=== PATIENT | female | born 1940 | race Asian ===

== ENCOUNTER → 2016-07-04 | Outpatient (CLI) | payer BC | END | disposition home or self-care (01) | LOC: C.PAPS 14:06 | PROVIDERS: ATTEND Obstetrics & Gynecology | DX: Z01.419 Encounter for gynecological examination (general) (routine) without abnormal findings (principal) ==

== ENCOUNTER → 2017-03-19 | Outpatient (CLI) | payer BC ==
--- NOTE | 2017-03-19 15:45 | MAMMOGRAPHY REPORT ---
BILATERAL DIGITAL SCREENING MAMMOGRAM WITH CAD: 03/19/2017 CLINICAL HISTORY: Routine screening. Patient has no complaints. TECHNIQUE: Bilateral CC and MLO views were obtained. Current study was also evaluated with a Compute r Aided Detection (CAD) system. COMPARISON: Comparison is made to exams dated: 02/28/2016 mammogram, 02/25/2015 mammogram, 02/24/2014 m ammogram, 02/23/2013 mammogram, 02/21/2012 mammogram, and 02/19/2011 mammogram - [facility] enter. BREAST COMPOSITION: The tissue of both breasts is heterogeneously dense, which may obscure small mas ses. FINDINGS: The parenchymal pattern is unchanged. No developing mass, architectural distortion or clus ter of suspicious microcalcifications is seen in either breast. IMPRESSION: ACR BI-RADS CATEGORY 2: BENIGN There is no mammographic evidence of malignancy. A 1 year screening mammogram is recommended. The pa tient will receive written notification of the results. Approximately 10% of breast cancers are not detected with mammography. A negative mammographic report should not delay biopsy if a clinically suggestive mass is present. Anika Whitlock M.D. ay/:03/19/2017 15:09:59 Box Bender: Estelle ESPINOZA(Lexie)(M), [facility] letter sent: Normal 1/2 BI-RADS Code: ACR BI-RADS Category 2: Benign
== END | disposition home or self-care (01) ==
LOC: C.MAMM 10:50
PROVIDERS: ATTEND Internal Medicine
DX: Z12.31 Encounter for screening mammogram for malignant neoplasm of breast (principal)

== ENCOUNTER → 2017-05-20 | Outpatient (CLI) | payer BC ==
[2017-05-20 12:21] LABS: BASO % 0.2 %; BASO ABS # 0.01 K/uL (0-0.2); COMPLETE YES; EOS % 3.9 %; HEMATOCRIT 39.8 % (37-47); IG% 0.2 %; LYMPH % 29.4 %; LYMPH ABS # 1.49 K/uL (1.2-3.4); MEAN CORPUSCULAR HEMOGLOBIN 29.3 pg (25-34); MEAN CORPUSCULAR HGB CONC 32.9 g/dl (32-36); MEAN PLATELET VOLUME 9.6 fL (7.4-10.4); MONO % 9.1 %; NEUT % 57.2 %; PLATELET COUNT 260 K/uL (130-400); RED BLOOD COUNT 4.47 M/uL (4.2-5.4); WHITE BLOOD COUNT 5.07 K/uL (4.8-10.8)
[2017-05-20 12:41] LABS: ALT/SGPT 18 U/L (12-78); BLOOD UREA NITROGEN 13 mg/dl (7-18); BUN/CREATININE RATIO 21.5 (10-20); CALCIUM 9.1 mg/dl (8.5-10.1); CARBON DIOXIDE 28 mmol/L (21-32); CHLORIDE 107 mmol/L (98-107); CHOLESTEROL 227 mg/dl (0-200); CREATININE 0.61 mg/dl (0.60-1.20); GLUCOSE 92 mg/dl (70-99); SODIUM 140 mmol/L (136-145); TRIGLYCERIDES 69 mg/dl (0-150); VERY LOW DENSITY LIPOPROT CALC 14 mg/dl
[2017-05-20 12:52] LABS: ALKALINE PHOSPHATASE 100 U/L (45-117); AST/SGOT 18 U/L (15-37); CHOLESTEROL/HDL RATIO 3.1; HDL CHOLESTEROL 73 mg/dl; LDL CHOLESTEROL CALCULATED 140 mg/dl
== END | disposition home or self-care (01) ==
LOC: C.LAB1850 10:06
PROVIDERS: ATTEND Internal Medicine
DX: Z00.00 Encounter for general adult medical examination without abnormal findings (principal); Z13.1 Encounter for screening for diabetes mellitus; Z13.0 Encounter for screening for diseases of the blood and blood-forming organs and certain disorders involving the immune mechanism; E03.9 Hypothyroidism, unspecified

== ENCOUNTER → 2017-09-30 | Outpatient (CLI) | payer OTHER | END | disposition home or self-care (01) | LOC: C.MAMM 08:47 | PROVIDERS: ATTEND Internal Medicine | DX: M85.851 Other specified disorders of bone density and structure, right thigh (principal); M85.852 Other specified disorders of bone density and structure, left thigh ==

== ENCOUNTER → 2017-10-07 | Outpatient (CLI) | payer OTHER | END | disposition home or self-care (01) | LOC: C.LAB1850 09:22 | PROVIDERS: ATTEND Internal Medicine | DX: M85.80 Other specified disorders of bone density and structure, unspecified site (principal); E78.5 Hyperlipidemia, unspecified; E03.9 Hypothyroidism, unspecified ==

== ENCOUNTER → 2017-10-15 | Outpatient (CLI) | payer OTHER ==
--- NOTE | 2017-10-15 08:47 | DIAGNOSTIC IMAGING REPORT ---
ABDOMEN LIMITED (US) HISTORY: 77 years-old Female M25.551 Right hip painu/s right lower quandrant and pelivisULTR acute right lower quadrant abdominal pain COMPARISON: None available TECHNIQUE: Multiple real-time sonographic images of the abdominal right lower quadrant were obtained assessing grayscale appearance FINDINGS: Within the abdominal right lower quadrant within the area of concern, no focal mass, focal fluid collection or other tissue heterogeneity identified. No hyperemia identified. IMPRESSION: No abnormality identified within the abdominal right lower quadrant. The above report was generated using voice recognition software. It may contain grammatical, syntax or spelling errors. Electronically signed by: Joey Hawley M.D. 10/15/2017 8:45 AM Dictated Date/Time: 10/15/2017 8:44 AM
== END | disposition home or self-care (01) ==
LOC: C.ULTR 08:06
PROVIDERS: ATTEND Internal Medicine
DX: M25.551 Pain in right hip (principal)

== ENCOUNTER → 2017-10-15 | Outpatient (CLI) | payer OTHER ==
--- NOTE | 2017-10-15 09:15 | DIAGNOSTIC IMAGING REPORT ---
R HIP UNILATERAL 2 VIEWS HISTORY: 77 years-old Female M25.551 Right hip [id number] acute right hip pain without known injury COMPARISON: None available TECHNIQUE: 2 views of the right hip FINDINGS: Mild osteoarthritis of the right femoral acetabular joint. Bones appear mildly demineralized. No acute fracture or dislocation. The imaged right hemipelvis appears intact. There is no radiopaque foreign body. IMPRESSION: No acute fracture or dislocation. The above report was generated using voice recognition software. It may contain grammatical, syntax or spelling errors. Electronically signed by: Joey Hawley M.D. 10/15/2017 9:13 AM Dictated Date/Time: 10/15/2017 9:12 AM
== END | disposition home or self-care (01) ==
LOC: C.RAD1850 08:51
PROVIDERS: ATTEND Internal Medicine
DX: M25.551 Pain in right hip (principal)

== ENCOUNTER 2022-12-01 19:39 | Observation (INO) ==
[2022-12-01] MEDS ORDERED: SODIUM CHLORIDE 0.9% 500 ML IV SCH (20:00)
[2022-12-01] MEDS ORDERED: SODIUM CHLORIDE 0.9% 1000ML 1,000 ML IV SCH (20:00)
--- NOTE | 2022-12-01 20:23 | Emergency Department Note ---
Impression & Plan COVID-19, Nausea & vomiting, Acute dehydration ED Provider Note INFORMANT: Patient and ED PROVIDER(S): Ángel Aquino MD CHIEF COMPLAINT: COVID and vomiting PLAN: Disposition: Admitted Condition: Good Outpatient prescription management: none Referral: None MEDICAL DECISION MAKING: Patient presented because of vomiting. She was recently diagnosed with COVID. She also noted dizziness. Patient was hydrated. She was given IV Zofran. Patient was also treated with meclizine and diazepam as she had significant positional vertigo-like symptoms. Patient did not have any vertical or rotatory nystagmus on examination. She had a nonfocal neurologic examination. Head CT was unremarkable. Chest x-ray was negative. Laboratory testing did not reveal any significant findings other than her COVID test confirming her positivity. Given the patient's symptomatic nature further management in the hospital will be necessary. Patient and were in agreement. Consultation was made with Dr. Michele Madrid of the [facility] service. Patient was evaluated in the ER for further management. Discussed with marketing sales manager After review of the information above and other included data, I feel the patient requires admission. Triage Nursing notes reviewed and agree them. Vital Signs: reviewed and remarkable for no significant abnormalities Prior /Outside records reviewed: none Differential diagnosis: COVID-19, medication side effect, gastroenteritis, food borne illness, infections, appendicitis, diverticulitis, inflammatory bowel disease, GI bleed, biliary pathology, as well as others were entertained. Diagnostics, as interpreted by me: ECG: Twelve-lead ECG reveals normal sinus rhythm at [address] elevation or depression. No TWI. No PVCs or PACs. Cardiac Monitoring: Cardiac monitoring ordered by me: The patient was placed on continuous cardiac monitoring and observed. It revealed a normal sinus rhythm at 83 beats per minute without ectopy or evidence of dysrhythmia. Medical decision rules: none Imaging studies: Chest x-ray. Findings: A chest x-ray was performed and revealed no pneumothorax, effusion, infiltrate, pulmonary edema, free air under the diaphragm, or wide mediastinum. Impression: No acute disease. Head CT: A noncontrast CT scan of the head was performed and was negative for tumor, fracture, intracranial hemorrhage, or other acute pathology. HPI: The patient is a 82year old female who presents to the Emergency Room with complaints of vomiting. This started yesterday and is worse today. The patient also notes the following associated symptoms, headache, mild cough, nausea, weakness, and one episode of diarrhea. Patient had a COVID contact recently. She tested +3 days ago. She was prescribed Paxlovid. The patient has been given Zofran by EMS for relieving factors. Current pain is rated as 0/10. Pt d enies LOC, fevers, chills, diaphoresis, visual changes, neck pain, chest pain, breathing difficulties,abdominal pain, back pain, melena, hematochezia, urinary symptoms, numbness, lymphadenopathy, rash, or other complaints. PAST MEDICAL HISTORY: See Below, GERD, hyperlipidemia PAST SURGICAL HISTORY: See Below, SOCIAL HISTORY: See Below, HOME MEDICATIONS: See Below ALLERGIES: See Below VITALS: See Below PHYSICAL EXAMINATION: GENERAL: Awake, alert, mildly ill-appearing, in no distress HENT: Normocephalic, atraumatic. Oropharynx unremarkable. EYES: Normal conjunctiva. Sclera non-icteric. NECK: Inspection normal. Non-tender. Supple. No nuchal rigidity. FROM. No masses. RESPIRATORY: Clear to auscultation. No wheezes. No rales. Normal respiratory effort. CARDIAC: Normal rate. Normal rhythm. No murmurs. No rubs. Extremities warm and well perfused. Pulses equal. No JVD. GI: Soft, non-distended. No tenderness to palpation. No rebound or guarding. No masses. RECTAL: Deferred. MUSCULOSKELETAL: Atraumatic. Chest examination reveals no tenderness. The back is symmetrical on inspection without obvious abnormality. There is no CVA tenderness to palpation. No joint edema. LOWER EXTREMITIES: Calves are equal size bilaterally and non-tender. No edema. No discoloration. NEURO: Normal sensorium. No sensory or motor deficits noted. SKIN: No rash or jaundice noted. Past Med/Surg History Medical History Basal cell carcinoma removed from cheek Dyspareunia Endometrial polyp Esophageal reflux Hyperlipidemia no meds Kidney stones hx of > passed on own Osteoarthritis Otitis media Pelvic pain Subclinical hypothyroidism no meds Venous insufficiency Surgical History H/O shoulder surgery left History of colonoscopy History of colposcopy History of left cataract surgery History of tooth extraction Family History Denies family history of Ovarian cancer Coronary heart disease Breast cancer Colorectal cancer Social History Smoking Status: Never smoker Second Hand Exposure: No; Do You Dip or Chew Tobacco: No; Hx Alcohol Use: No Hx Substance Use: No Preferred Language: Georgian Communication Ability: Effective Visual Impairment: No Limitations Hearing Ability: Normal Towboat Operator Required: No Beliefs That Will Affect Care: None marital status: Current Living Situation: Spouse current occupational status: retired Feels Safe at Home: Yes Dental Care, Regularly: Yes Seatbelt Use: always Sunscreen Use: Yes Assistive Devices: Glasses Allergies Allergies Allergy/AdvReac Type Severity Reaction Status Date / Time cortisone AdvReac Intermediate Rash Verified 11/27/22 06:31 erythromycin base AdvReac Intermediate Rash Verified 11/27/22 06:31 Penicillins AdvReac Intermediate Rash Verified 11/27/22 06:31 prednisone AdvReac Intermediate Rash Verified 11/27/22 06:31 Tetracyclines AdvReac Unknown Unknown Verified 11/27/22 06:31 Home Meds Home Medications Medication Instructions Recorded Confirmed ascorbate calcium (vitamin C) 500 500 mg PO DAILY 11/01/22 12/01/22 mg tablet calcium carbonate 200 mg calcium 200 mg PO BID PRN Cramps 11/01/22 12/01/22 (500 mg) chewable tablet (Tums) famotidine 20 mg tablet 20 mg PO DAILY PRN Heartburn 11/01/22 12/01/22 gatifloxacin 0.5 % eye drops See Rx Instructions .Route .COMPLEX 12/01/22 12/01/22 ketorolac 0.5 % eye drops See Rx Instructions .Route .COMPLEX 12/01/22 12/01/22 prednisolone acetate 1 % eye See Rx Instructions .Route .COMPLEX 12/01/22 12/01/22 drops,suspension Previous Rx's Medication Instructions Recorded lorazepam 0.5 mg tablet 0.5 mg PO DAILY PRN anxiety #30 11/21/22 tabs nirmatrelvir 300 mg (150 mg See Rx Instructions PO .COMPLEX 11/30/22 x2)-ritonavir 100 mg tablet,dose #30 tabs pack (Paxlovid) Results & Data (ED) Vital Signs Vital Signs - 24 hr 12/01/22 19:55 12/01/22 20:20 12/01/22 20:35 Temperature 36.4 C L Temperature Source Oral Pulse Rate 85 82 83 Pulse Rate [Finger] Pulse Rate from SpO2 Sensor Pulse Rhythm Regular Respiratory Rate 18 18 Blood Pressure 130/72 Blood Pressure [Right Arm] Blood Pressure Mean 91 Blood Pressure Mean [Right Arm] Blood Pressure Position Semi-fowlers Pulse Oximetry 98 98 Oxygen Delivery Method Room Air Room Air Sepsis Recent Fever Within 48 Hours No Sepsis New/Unexplained Change in Mental Status No Sepsis Action Taken by Nursing No Action Required 12/01/22 21:30 12/01/22 21:30 12/01/22 22:00 Temperature Temperature Source Pulse Rate 79 Pulse Rate [Finger] Pulse Rate from SpO2 Sensor 79 Pulse Rhythm Respiratory Rate 18 Blood Pressure 145/81 H 137/78 Blood Pressure [Right Arm] Blood Pressure Mean 102 91 Blood Pressure Mean [Right Arm] Blood Pressure Position Pulse Oximetry 93 Oxygen Delivery Method Room Air Sepsis Recent Fever Within 48 Hours Sepsis New/Unexplained Change in Mental Status Sepsis Action Taken by Nursing 12/01/22 22:00 12/02/22 00:00 12/02/22 00:35 Temperature Temperature Source Pulse Rate 84 81 Pulse Rate [Finger] 85 Pulse Rate from SpO2 Sensor 84 Pulse Rhythm Respiratory Rate 21 20 Blood Pressure Blood Pressure [Right Arm] 130/88 Blood Pressure Mean Blood Pressure Mean [Right Arm] 102 Blood Pressure Position Pulse Oximetry 93 94 Oxygen Delivery Method Room Air Room Air Sepsis Recent Fever Within 48 Hours Sepsis New/Unexplained Change in Mental Status Sepsis Action Taken by Nursing 12/02/22 02:00 Temperature Temperature Source Pulse Rate Pulse Rate [Finger] 83 Pulse Rate from SpO2 Sensor Pulse Rhythm Respiratory Rate 18 Blood Pressure Blood Pressure [Right Arm] 136/71 Blood Pressure Mean Blood Pressure Mean [Right Arm] 92 Blood Pressure Position Pulse Oximetry 96 Oxygen Delivery Method Room Air Sepsis Recent Fever Within 48 Hours Sepsis New/Unexplained Change in Mental Status Sepsis Action Taken by Nursing Laboratory Data 12/01/22 20:12 12/01/22 20:12 Lab Results 12/01/22 12/01/22 12/01/22 Range/Units 20:12 20:12 20:12 WBC 6.57 (4.8-10.8) K/ul RBC 4.16 L (4.20-5.40) M/uL Hgb 12.5 (12.0-16.0) g/dl Hct 37.2 (37.0-47.0) % MCV 89.4 (80.0-100.0) fL MCH 30.0 (25.0-34.0) pg MCHC 33.6 (32.0-36.0) g/dL RDW Std Deviation 42.7 (36.4-46.3) fL RDW Coeff of Silke 13.1 (11.5-14.5) % Plt Count 178 (130-400) K/uL MPV 10.3 (9.4-12.4) fL Immature Gran % (Auto) 0.3 % Neut % (Auto) 85.1 % Lymph % (Auto) 8.2 % Jerauld % (Auto) 5.6 % Eos % (Auto) 0.3 % Baso % (Auto) 0.5 % Neut # (Auto) 5.59 (1.40-6.50) K/uL Lymph # (Auto) 0.54 L (1.2-3.4) K/uL Jerauld # (Auto) 0.37 (0.11-0.59) K/uL Eos # (Auto) 0.02 (0-0.50) K/uL Baso # (Auto) 0.03 (0-0.2) K/uL Immature Gran # (Auto) 0.02 (0.01-0.20) K/uL Platelet Estimate Decreased L (Normal) Sodium 134 L (136-145) mmol/L Potassium 3.8 (3.5-5.1) mmol/L Chloride 102 (98-107) mmol/L Carbon Dioxide 24 (21-32) mmol/L Anion Gap 8 (3-11) BUN 12 (6-23) mg/dl Creatinine 0.60 (0.6-1.2) mg/dl Est Cr Clr Drug Dosing 68.8 ml/min Est GFR ( Amer) 99.1 ml/min Est GFR (Non-Af Amer) 85.5 ml/min BUN/Creatinine Ratio 20.0 (10-20) Glucose 164 H (70-99(Fasting)) mg/dl Lactate (0.4-2.0) mmol/L Calcium 9.0 (8.6-10.3) mg/dl Magnesium 1.9 (1.7-2.4) mg/dl Total Bilirubin 0.3 (0.2-1.0) mg/dl AST 22 (13-39) U/L ALT 13 (7-52) U/L Alkaline Phosphatase 90 (34-104) U/L Troponin I High Sens 9.2 (0-14) pg/ml Total Protein 7.3 (6.0-8.3) gm/dl Albumin 4.3 (3.4-5.0) gm/dl Globulin 3.0 (2.5-4.0) gm/dl Albumin/Globulin Ratio 1.4 (0.9-2) Procalcitonin (0-0.5) ng/ml TSH 4.370 (0.300-4.500) uIu/ml SARS-CoV-2 (PCR) (Negative) Influenza Type A (PCR) (Neg) Influenza Type B (PCR) (Neg) RSV (RT-PCR) (Neg) 12/01/22 12/01/22 12/01/22 Range/Units 20:12 20:12 20:12 WBC (4.8-10.8) K/ul RBC (4.20-5.40) M/uL Hgb (12.0-16.0) g/dl Hct (37.0-47.0) % MCV (80.0-100.0) fL MCH (25.0-34.0) pg MCHC (32.0-36.0) g/dL RDW Std Deviation (36.4-46.3) fL RDW Coeff of Silke (11.5-14.5) % Plt Count (130-400) K/uL MPV (9.4-12.4) fL Immature Gran % (Auto) % Neut % (Auto) % Lymph % (Auto) % Jerauld % (Auto) % Eos % (Auto) % Baso % (Auto) % Neut # (Auto) (1.40-6.50) K/uL Lymph # (Auto) (1.2-3.4) K/uL Jerauld # (Auto) (0.11-0.59) K/uL Eos # (Auto) (0-0.50) K/uL Baso # (Auto) (0-0.2) K/uL Immature Gran # (Auto) (0.01-0.20) K/uL Platelet Estimate (Normal) Sodium (136-145) mmol/L Potassium (3.5-5.1) mmol/L Chloride (98-107) mmol/L Carbon Dioxide (21-32) mmol/L Anion Gap (3-11) BUN (6-23) mg/dl Creatinine (0.6-1.2) mg/dl Est Cr Clr Drug Dosing ml/min Est GFR ( Amer) ml/min Est GFR (Non-Af Amer) ml/min BUN/Creatinine Ratio (10-20) Glucose (70-99(Fasting)) mg/dl Lactate 1.5 (0.4-2.0) mmol/L Calcium (8.6-10.3) mg/dl Magnesium (1.7-2.4) mg/dl Total Bilirubin (0.2-1.0) mg/dl AST (13-39) U/L ALT (7-52) U/L Alkaline Phosphatase (34-104) U/L Troponin I High Sens (0-14) pg/ml Total Protein (6.0-8.3) gm/dl Albumin (3.4-5.0) gm/dl Globulin (2.5-4.0) gm/dl Albumin/Globulin Ratio (0.9-2) Procalcitonin < 0.05 (0-0.5) ng/ml TSH (0.300-4.500) uIu/ml SARS-CoV-2 (PCR) POSITIVE A* (Negative) Influenza Type A (PCR) Negative (Neg) Influenza Type B (PCR) Negative (Neg) RSV (RT-PCR) Negative (Neg) Administered Medications Sodium Chloride (Nss 1000ml) 1,000 mls @ 125 mls/hr IV .Q8H BUNNY Stop: 12/02/22 03:59 Last Admin: 12/01/22 20:22 Dose: 125 mls/hr Documented By: Discontinued Medications Diazepam (Diazepam 5 Mg/Ml Inj 10ml Vial) 2.5 mg IV NOW STA Stop: 12/01/22 21:44 Last Admin: 12/01/22 22:16 Dose: 2.5 mg Documented By: Sodium Chloride (Nss) 500 mls @ 999 mls/hr IV .Q31M BUNNY Stop: 12/01/22 20:30 Last Infusion: 12/01/22 22:21 Dose: 0 mls/hr Documented By: Admin: 12/01/22 20:22 Dose: 999 mls/hr Documented By: Meclizine HCl (Meclizine Hcl 25 Mg Tab) 25 mg PO NOW STA Stop: 12/01/22 21:44 Last Admin: 12/01/22 22:14 Dose: 25 mg Documented By: Ondansetron HCl (Ondansetron Inj 2 Mg/Ml 2 Ml Vial) 4 mg IV NOW STA Stop: 12/01/22 20:27 Last Admin: 12/01/22 20:30 Dose: 4 mg Documented By: Imaging Data Radiologist's Impression: Head CT 12/01/22 21:43 Exam(s): CT HEAD Without Contrast EXAM: CT Head Without Intravenous Contrast CLINICAL HISTORY: Reason for exam: dizziness, vomiting. TECHNIQUE: Axial computed tomography images of the head/brain without intravenous contrast. Automated exposure control was utilized for the study. A dose lowering technique was utilized adhering to the principles of ALARA. COMPARISON: No relevant prior studies available. FINDINGS: Brain: Unremarkable. No hemorrhage. No significant white matter disease. No edema. Ventricles: Unremarkable. No ventriculomegaly. Bones/joints: Unremarkable. No acute fracture. Soft tissues: Unremarkable. Sinuses: Unremarkable as visualized. No acute sinusitis. Mastoid air cells: Unremarkable as visualized. No mastoid effusion. IMPRESSION: Normal head/brain CT. Electronically signed by: Faustino Bar MD 12/01/22 23:14 PM Discharge Plan Visit Data Chief Complaint: Vomiting Stated Complaint: COVID+/VOMITING/DIARRHEA ED Provider: Ángel Aquino Discharge Problem: COVID-19, Nausea & vomiting, Acute dehydration Forms Stand Alone Forms: [facility] [employer] Prescriptions Prescriptions: No Action lorazepam 0.5 mg tablet 0.5 mg PO DAILY PRN (Reason: anxiety) Qty: 30 0RF Paxlovid 300 mg (150 mg x 2)-100 mg tablets,dose pack See Rx Instructions PO .COMPLEX Qty: 30 0RF Rx Instructions: take TWO 150 mg tablets of nirmatrelvir with ONE 100 mg tablet of ritonavir twice daily for 5 days PO famotidine 20 mg tablet 20 mg PO DAILY PRN (Reason: Heartburn) calcium carbonate [Tums] 200 mg calcium (500 mg) tablet,chewable 200 mg PO BID PRN (Reason: Cramps) ascorbate calcium (vitamin C) 500 mg tablet 500 mg PO DAILY ketorolac 0.5 % drops See Rx Instructions .ROUTE .COMPLEX Rx Instructions: drp prednisolone acetate 1 % drops,suspension See Rx Instructions .ROUTE .COMPLEX Rx Instructions: drp gatifloxacin 0.5 % drops See Rx Instructions .ROUTE .COMPLEX Rx Instructions: drp Referrals Referrals: Johnathon Butler MD [Primary Care Provider] -
[2022-12-01] MEDS ORDERED: ONDANSETRON INJ 2 MG/ML 2 ML VIAL IV STA (20:26)
[2022-12-01 20:55] LABS: Hematocrit (blood only) 37.2 % (37.0-47.0); Hemoglobin 12.5 g/dl (12.0-16.0); White Blood Count 6.57 K/ul (4.8-10.8)
[2022-12-01 21:02] LABS: Albumin Globulin Ratio 1.4 (0.9-2); Albumin Level 4.3 gm/dl (3.4-5.0); Bilirubin,Total 0.3 mg/dl (0.2-1.0); Creatinine Clr Calc Pharmacy 68.8 ml/min; Est GFR (African American) 99.1 ml/min; Est GFR (Non-African American) 85.5 ml/min; Magnesium 1.9 mg/dl (1.7-2.4); Potassium 3.8 mmol/L (3.5-5.1); Total Protein 7.3 gm/dl (6.0-8.3)
[2022-12-01 21:07] LABS: Troponin I High Sensitivity 9.2 pg/ml (0-14)
[2022-12-01 21:23] LABS: Influenza A virus by PCR Negative (Neg); Influenza B virus by PCR Negative (Neg); RSV by PCR Negative (Neg)
[2022-12-01] MEDS ORDERED: MECLIZINE HCL 25 MG TAB PO STA (21:43)
[2022-12-01 21:49] LABS: SARS CoV2 RNA(COVID-19) Ceph POSITIVE (Negative)
[2022-12-01 22:18] LABS: Mean Corpuscular Hgb Conc 33.6 g/dL (32.0-36.0); Mean Corpuscular Volume 89.4 fL (80.0-100.0); Mean Platelet Volume 10.3 fL (9.4-12.4); Platelet Count 178 K/uL (130-400); RDW Coefficient of Variation 13.1 % (11.5-14.5); RDW Standard Deviation 42.7 fL (36.4-46.3); Red Blood Count 4.16 M/uL (4.20-5.40)
[2022-12-01 22:20] LABS: Basophils # (auto) 0.03 K/uL (0-0.2); Basophils % (auto) 0.5 %; Eosinophils # (auto) 0.02 K/uL (0-0.50); Eosinophils % (auto) 0.3 %; Immature Granulocytes # (auto) 0.02 K/uL (0.01-0.20); Immature Granulocytes % (auto) 0.3 %; Lymphocytes # (auto) 0.54 K/uL (1.2-3.4); Lymphocytes % (auto) 8.2 %; Monocytes # (auto) 0.37 K/uL (0.11-0.59); Monocytes % (auto) 5.6 %; Neutrophils # (auto) 5.59 K/uL (1.40-6.50); Neutrophils % (auto) 85.1 %; Platelet Estimate Decreased (Normal)
--- NOTE | 2022-12-01 23:15 | CT Scan Report ---
Exam(s): CT HEAD Without Contrast EXAM: CT Head Without Intravenous Contrast CLINICAL HISTORY: Reason for exam: dizziness, vomiting. TECHNIQUE: Axial computed tomography images of the head/brain without intravenous contrast. Automated exposure control was utilized for the study. A dose lowering technique was utilized adhering to the principles of ALARA. COMPARISON: No relevant prior studies available. FINDINGS: Brain: Unremarkable. No hemorrhage. No significant white matter disease. No edema. Ventricles: Unremarkable. No ventriculomegaly. Bones/joints: Unremarkable. No acute fracture. Soft tissues: Unremarkable. Sinuses: Unremarkable as visualized. No acute sinusitis. Mastoid air cells: Unremarkable as visualized. No mastoid effusion. IMPRESSION: Normal head/brain CT. Electronically signed by: Faustino Bar MD 12/01/22 23:14 PM
--- NOTE | 2022-12-02 01:38 | History & Physical Report ---
Date of Service December 02, 2022 Assessment & Plan (1) COVID-19: (2) Nausea & vomiting: (3) Acute dehydration: (4) GERD (gastroesophageal reflux disease): (5) S/P cataract extraction and insertion of intraocular lens: Plan COVID-19 infection- Would hold Paxlovid at this point, as it may aggravate current symptoms as noted above Viral infection likely as cause of nausea and vomiting, vertigo, dizziness and generalized weakness Treat symptomatically Would not place on dexamethasone at this time Placed on IV fluids NSS + KCl 20 mill equivalents at 80 mils per hour Acetaminophen 650 mg NPO every 6 hours as needed for mild pain or fever Zofran 4 mg IV every 6 hours as needed Lorazepam 0.5 mg p.o. every 8 hours as needed. Patient did receive Valium 2.5 mg IV from the ED Status post cataract extractions bilaterally- Continue eyedrops as noted in med rec History of Present Illness Chief Complaint: The patient presents to the emergency department with intractable vertigo, vomiting, dizziness and dry mouth. Primary Care Provider: Johnathon Butler MD The patient is a 82-year-old female who underwent first cataract extraction about 1 month ago, then follow-up I was done on Saturday, 4 days ago. She continues to take eyedrops post eye surgery. 3 days ago, her was diagnosed with COVID 19, and then 2 days ago she was diagnosed with COVID-19. Yesterday she developed the above symptoms of intractable vertigo, vomiting, dizziness, and dry mouth associated with decreased oral intake. She had been prescribed Paxlovid, of which she took 1 dose so far, and this was taken after the noted symptoms began. She and her report that she typically is a healthy person, and does not take any medications routinely prior to using eyedrops for eye surgery. Allergies Allergy/AdvReac Type Severity Reaction Status Date / Time cortisone AdvReac Intermediate Rash Verified 11/27/22 06:31 erythromycin base AdvReac Intermediate Rash Verified 11/27/22 06:31 Penicillins AdvReac Intermediate Rash Verified 11/27/22 06:31 prednisone AdvReac Intermediate Rash Verified 11/27/22 06:31 Tetracyclines AdvReac Unknown Unknown Verified 11/27/22 06:31 Home Medications Medication Instructions Recorded Confirmed Type ascorbate calcium (vitamin C) 500 500 mg PO DAILY 11/01/22 12/01/22 History mg tablet calcium carbonate 200 mg calcium 200 mg PO BID PRN Cramps 11/01/22 12/01/22 Hi story (500 mg) chewable tablet (Tums) famotidine 20 mg tablet 20 mg PO DAILY PRN Heartburn 11/01/22 12/01/22 History lorazepam 0.5 mg tablet 0.5 mg PO DAILY PRN anxiety #30 11/21/22 12/01/22 Rx tabs nirmatrelvir 300 mg (150 mg See Rx Instructions PO .COMPLEX 11/30/22 12/01/22 Rx x2)-ritonavir 100 mg tablet,dose #30 tabs pack (Paxlovid) gatifloxacin 0.5 % eye drops See Rx Instructions .Route .COMPLEX 12/01/22 12/01/22 History ketorolac 0.5 % eye drops See Rx Instructions .Route .COMPLEX 12/01/22 12/01/22 History prednisolone acetate 1 % eye See Rx Instructions .Route .COMPLEX 12/01/22 12/01/22 History drops,suspension Past Med/Surg History Medical History (Updated 12/01/22 @ 20:22 by Ángel Aquino MD) Basal cell carcinoma removed from cheek Dyspareunia Endometrial polyp Esophageal reflux Hyperlipidemia no meds Kidney stones hx of > passed on own Osteoarthritis Otitis media Pelvic pain Subclinical hypothyroidism no meds Venous insufficiency Surgical History (Updated 12/02/22 @ 05:15 by Michele Madrid MD) H/O shoulder surgery left History of colonoscopy History of colposcopy History of left cataract surgery History of tooth extraction S/P cataract extraction and insertion of intraocular lens Family History Denies family history of Ovarian cancer Coronary heart disease Breast cancer Colorectal cancer Social History Smoking Status: Never smoker Second Hand Exposure: No; Do You Dip or Chew Tobacco: No; Tobacco Cessation Education Requested by Patient: No Hx Alcohol Use: No Hx Substance Use: No Preferred Language: Bengali Communication Ability: Kitt[place] Visual Impairment: No Limitations Hearing Ability: Normal Information Systems Operator Required: No Beliefs That Will Affect Care: None marital status: Current Living Situation: Spouse current occupational status: retired Other Information That Helps Us Care for You: No Feels Safe at Home: Yes Safety Concerns: Feels Safe At This Time Dental Care, Regularly: Yes Seatbelt Use: always Sunscreen Use: Yes Assistive Devices: None Review of Systems Review of Systems: The patient denies chest pain, palpitations, shortness of breath, dyspnea on exertion, cough, lower extremity swelling, fevers, chills, sweats, blood in urine or stool, dysuria, urinary frequency or urgency, memory loss, loss of consciousness, rash, abnormal bruising or bleeding, imbalance, focal weakness, numbness or tingling in arms or legs, generalized arthralgias or myalgias, back or neck pain, or night sweats. The review of systems is otherwise negative other than for that already noted above, and at least 10 systems have been reviewed. Physical Exam Physical Exam: The patient is awake, alert and oriented 3, well developed and well nourished, normocephalic and atraumatic, lying in bed, wearing dark sunglasses, and in no acute distress. HEENT--PERRL, EOMI, mucous membranes and oropharynx moderately dry. Neck--supple. No JVD. No bruits. Thyroid normal, trachea midline, no adenopathy. Heart--normal S1 and S2. No murmurs, rubs or gallops. Lungs--clear bilaterally, no respiratory distress, no accessory muscle use. Abdomen--normal bowel sounds and soft. Nontender. Nondistended, no hernias or masses, no organomegaly. Extremities--no cyanosis or clubbing. No edema. Dermatologic--normal skin turgor, normal color, no abnormal lymph nodes, no rash. Neurologic--cranial nerves II through XII grossly intact. Rheumatologic--normal range of motion. Psychiatric--normal affect. Results & Data Results & Data Vital Signs (Past 12 Hours) Vital Signs Temp Pulse Pulse Resp BP BP Pulse Ox 12/02/22 00:00 85 20 130/88 94 12/01/22 22:00 84 21 93 12/01/22 22:00 137/78 12/01/22 21:30 79 18 93 12/01/22 21:30 145/81 H 12/01/22 20:35 83 12/01/22 20:20 82 18 98 12/01/22 19:55 36.4 C L 85 18 130/72 98 O2 Del Method 12/02/22 00:00 Room Air 12/01/22 22:00 Room Air 12/01/22 22:00 12/01/22 21:30 Room Air 12/01/22 21:30 12/01/22 20:35 12/01/22 20:20 Room Air 12/01/22 19:55 Room Air Laboratory Results Laboratory Results WBC 6.57 K/ul (4.8-10.8) 12/01/22 20:12 RBC 4.16 M/uL (4.20-5.40) L 12/01/22 20:12 Hgb 12.5 g/dl (12.0-16.0) 12/01/22 20:12 Hct 37.2 % (37.0-47.0) 12/01/22 20:12 MCV 89.4 fL (80.0-100.0) 12/01/22 20:12 MCH 30.0 pg (25.0-34.0) 12/01/22 20:12 MCHC 33.6 g/dL (32.0-36.0) 12/01/22 20:12 RDW Std Deviation 42.7 fL (36.4-46.3) 12/01/22 20:12 RDW Coeff of Silke 13.1 % (11.5-14.5) 12/01/22 20:12 Plt Count 178 K/uL (130-400) 12/01/22 20:12 MPV 10.3 fL (9.4-12.4) 12/01/22 20:12 Immature Gran % (Auto) 0.3 % 12/01/22 20:12 Neut % (Auto) 85.1 % 12/01/22 20:12 Lymph % (Auto) 8.2 % 12/01/22 20:12 [place] % (Auto) 5.6 % 12/01/22 20:12 Eos % (Auto) 0.3 % 12/01/22 20:12 Baso % (Auto) 0.5 % 12/01/22 20:12 Neut # (Auto) 5.59 K/uL (1.40-6.50) 12/01/22 20:12 Lymph # (Auto) 0.54 K/uL (1.2-3.4) L 12/01/22 20:12 [place] # (Auto) 0.37 K/uL (0.11-0.59) 12/01/22 20:12 Eos # (Auto) 0.02 K/uL (0-0.50) 12/01/22 20:12 Baso # (Auto) 0.03 K/uL (0-0.2) 12/01/22 20:12 Immature Gran # (Auto) 0.02 K/uL (0.01-0.20) 12/01/22 20:12 Platelet Estimate Decreased (Normal) L 12/01/22 20:12 Sodium 134 mmol/L (136-145) L 12/01/22 20:12 Potassium 3.8 mmol/L (3.5-5.1) 12/01/22 20:12 Chloride 102 mmol/L (98-107) 12/01/22 20:12 Carbon Dioxide 24 mmol/L (21-32) 12/01/22 20:12 Anion Gap 8 (3-11) 12/01/22 20:12 BUN 12 mg/dl (6-23) 12/01/22 20:12 Creatinine 0.60 mg/dl (0.6-1.2) 12/01/22 20:12 Est Cr Clr Drug Dosing 68.8 ml/min 12/01/22 20:12 Est GFR ( Amer) 99.1 ml/min 12/01/22 20:12 Est GFR (Non-Af Amer) 85.5 ml/min 12/01/22 20:12 BUN/Creatinine Ratio 20.0 (10-20) 12/01/22 20:12 Glucose 164 mg/dl (70-99(Fasting)) H 12/01/22 20:12 Lactate 1.5 mmol/L (0.4-2.0) 12/01/22 20:12 Calcium 9.0 mg/dl (8.6-10.3) 12/01/22 20:12 Magnesium 1.9 mg/dl (1.7-2.4) 12/01/22 20:12 Total Bilirubin 0.3 mg/dl (0.2-1.0) 12/01/22 20:12 AST 22 U/L (13-39) 12/01/22 20:12 ALT 13 U/L (7-52) 12/01/22 20:12 Alkaline Phosphatase 90 U/L (34-104) 12/01/22 20:12 Troponin I High Sens 9.2 pg/ml (0-14) 12/01/22 20:12 Total Protein 7.3 gm/dl (6.0-8.3) 12/01/22 20:12 Albumin 4.3 gm/dl (3.4-5.0) 12/01/22 20:12 Globulin 3.0 gm/dl (2.5-4.0) 12/01/22 20:12 Albumin/Globulin Ratio 1.4 (0.9-2) 12/01/22 20:12 Procalcitonin < 0.05 ng/ml (0-0.5) 12/01/22 20:12 TSH 4.370 uIu/ml (0.300-4.500) 12/01/22 20:12 Urine Color Yellow 12/02/22 04:30 Urine Appearance Clear (Clear) 12/02/22 04:30 Urine pH 7.0 (4.5-7.5) 12/02/22 04:30 Ur Specific [place] 1.007 (1.000-1.030) 12/02/22 04:30 Urine Protein Negative (Negative) 12/02/22 04:30 Urine Glucose (UA) Trace (Negative) H 12/02/22 04:30 Urine Ketones Negative (Negative) 12/02/22 04:30 Urine Blood Negative (Negative) 12/02/22 04:30 Urine Nitrite Negative (Negative) 12/02/22 04:30 Urine Bilirubin Negative (Negative) 12/02/22 04:30 Urine Urobilinogen Negative (Negative) 12/02/22 04:30 Ur Leukocyte Esterase Negative (Negative) 12/02/22 04:30 SARS-CoV-2 (PCR) POSITIVE (Negative) A* 12/01/22 20:12 Influenza Type A (PCR) Negative (Neg) 12/01/22 20:12 Influenza Type B (PCR) Negative (Neg) 12/01/22 20:12 RSV (RT-PCR) Negative (Neg) 12/01/22 20:[address] 12/01/22 21:43 Exam(s): CT HEAD Without Contrast EXAM: CT Head Without Intravenous Contrast CLINICAL HISTORY: Reason for exam: dizziness, vomiting. TECHNIQUE: Axial computed tomography images of the head/brain without intravenous contrast. Automated exposure control was utilized for the study. A dose lowering technique was utilized adhering to the principles of ALARA. COMPARISON: No relevant prior studies available. FINDINGS: Brain: Unremarkable. No hemorrhage. No significant white matter disease. No edema. Ventricles: Unremarkable. No ventriculomegaly. Bones/joints: Unremarkable. No acute fracture. Soft tissues: Unremarkable. Sinuses: Unremarkable as visualized. No acute sinusitis. Mastoid air cells: Unremarkable as visualized. No mastoid effusion. IMPRESSION: Normal head/brain CT. Electronically signed by: Faustino Bar MD 12/01/22 23:14 PM Code Status & VTE Plan Code Status Full code VTE Prophylaxis Plan VTE Prophylaxis will be ordered: Yes PG Care Time/CCT Total # of Minutes Spent Total Time Spent with Patient: Total time spent is greater than 50% in coordination of care (as documented) at patient's floor/unit and/or counseling patient: Coding Level of Care Code 68623 INT INP/OBS CARE 3/75MIN Diagnoses COVID-19 U07.1 Nausea & vomiting R11.2 Acute dehydration E86.0 GERD (gastroesophageal reflux disease) K21.9 S/P cataract extraction and insertion of intraocular lens Z98.49; Z96.1
[2022-12-02] MEDS ORDERED: CALCIUM CARBONATE 500 MG CHEWABLE TAB PO PRN (03:02)
[2022-12-02] MEDS ORDERED: ACETAMINOPHEN 325 MG TAB PO PRN (03:02)
[2022-12-02] MEDS ORDERED: ONDANSETRON INJ 2 MG/ML 2 ML VIAL IV PRN (03:02)
[2022-12-02] MEDS ORDERED: LORazepam 0.5 MG TAB PO PRN (03:02)
[2022-12-02] MEDS: NSS + 20MEQ KCL 20 MEQ/1,000 ML BAG IV SCH ×2 (03:51→16:29)
[2022-12-02 04:36] LABS: Appearance Urine Clear (Clear); Bilirubin Urine Negative (Negative); Blood Urine Negative (Negative); Color Urine Yellow; Glucose Urine UA Trace (Negative); Ketones Urine Negative (Negative); Leukocyte Esterase Urine Negative (Negative); Nitrite Urine Negative (Negative); Protein Urine Negative (Negative); Specific Gravity Urine 1.007 (1.000-1.030); Urobilinogen Urine Negative (Negative)
--- NOTE | 2022-12-02 07:49 | XRay Report ---
XR chest 1V portable CLINICAL HISTORY: weakness COMPARISON STUDY: Chest CT November 01, 2006. FINDINGS: Lung volumes are mildly diminished. There is no pneumothorax or effusion. Minimal left basi lar opacity favors atelectasis. Cardiac size is normal. There is no evidence for pulmonary edema. IMPRESSION: 1. No acute cardiopulmonary findings. 2. Minimal left basilar opacity which favors atelectasis. ACT 112: Negative or not required by law. Electronically signed by: Humberto Leahy M.D. 12/02/2022 7:48 AM
[2022-12-02 08:14] LABS: Basophils # (auto) 0.01 K/uL (0-0.2); Basophils % (auto) 0.2 %; Hematocrit (blood only) 37.8 % (37.0-47.0); Immature Granulocytes # (auto) 0.02 K/uL (0.01-0.20); Immature Granulocytes % (auto) 0.4 %; Mean Corpuscular Hemoglobin 30.1 pg (25.0-34.0); Mean Corpuscular Hgb Conc 34.4 g/dL (32.0-36.0); Mean Corpuscular Volume 87.5 fL (80.0-100.0); Mean Platelet Volume 9.5 fL (9.4-12.4); Monocytes # (auto) 0.68 K/uL (0.11-0.59); Neutrophils # (auto) 3.43 K/uL (1.40-6.50); Neutrophils % (auto) 65.4 %; Platelet Count 214 K/uL (130-400); RDW Standard Deviation 41.5 fL (36.4-46.3); Red Blood Count 4.32 M/uL (4.20-5.40); White Blood Count 5.24 K/ul (4.8-10.8)
[2022-12-02 08:28] LABS: Albumin Level 3.8 gm/dl (3.4-5.0); BUN Creatinine Ratio 14.5 (10-20); Calcium 8.7 mg/dl (8.6-10.3); Phosphorus 2.7 mg/dl (2.5-4.9); Potassium 3.7 mmol/L (3.5-5.1)
[2022-12-02] MEDS ORDERED: REMDESIVIR 200 MG in SODIUM CHLORIDE 0.9% 210 ML IV STA (09:34)
[2022-12-02] MEDS: MECLIZINE 12.5 MG TAB PO SCH ×3 (10:20→22:08)
[2022-12-02] MEDS: ASCORBIC ACID 500 MG TAB PO SCH (10:20)
[2022-12-02] MEDS: CIPROFLOXACIN HCL 0.3% OP SOLN 2.5 ML BTL OPR SCH ×3 (10:22→14:30)
[2022-12-02] MEDS ORDERED: KETOROLAC 0.5% OP SOLN 3 ML BTL OPR SCH (12:00)
[2022-12-02] MEDS: KETOROLAC 0.5% OP SOLN 5 ML BTL OPR SCH ×3 (12:16→20:20)
[2022-12-02] MEDS: prednisoLONE acetate 1% OP SUSP 5 ML BTL OPR SCH ×3 (12:16→20:19)
[2022-12-02] MEDS: GATIFLOXACIN 0.5% OP SOLN 2.5 ML BTL OPR SCH ×2 (16:22→22:11)
[2022-12-02] MEDS ORDERED: LORazepam 1 MG TAB PO STA (18:55)
--- NOTE | 2022-12-02 19:53 | Hospitalist Progress Note ---
Date of Service December 02, 2022 Assessment & Plan (1) COVID-19: Plan: tested + on , 11/29 developed symptoms yesterday - cough, congestion, and acute vertigo - see below thus far no clinical evidence of pneumonia, but o2 sats at times are <94% LLL atelectasis on cxr watch closely for development of pneumonia defer on steroids for now, but reasonable to start Remdesivir (in vincent of paxlovid) (2) Acute severe vertigo: Plan: likely 2nd to COVID infection small chance this could be central (ie - acute CVA) start meclizine 12.5mg TID scheduled PT, OT obtain MRI brain - r/o acute CVA as cause of vertigo (3) Nausea & vomiting: Plan: resolved 2nd to #2 anti-emetics prn meclizine TID (4) Acute dehydration: Plan: improved stop IVF (5) GERD (gastroesophageal reflux disease): Plan: pepcid prn (6) S/P cataract extraction and insertion of intraocular lens: Plan: right eye 11/27/22 Dr Ren cont prednisolone eye drops cont gaifloxacin eye drops cont ketorolac eye drops all ordered for patient Plan DVT proph - if patient stays beyond the next 24 hours will ask ophtho if ok to use chemical DVT proph Admission and Anticipated Discharge Date Admission Date: December 02, 2022 Subjective patient resting in bed during the visit at bedside pt with cough and congestion but no dyspnea continues with vertigo can't get out of bed due to the vertigo tele overnight wnl pt tested + on for COVID per Review of Systems Review of Systems: neuro - denies motor weakness; denies dysphagia; denies dysarthria; right eye vision wnl; left eye vision wnl Physical Exam Physical Exam: gen - looks sick but nontoxic, NAD, coughing eyes - clear sclera; +nystagmus fast beat to the right (horizontal); no vertical nystagmus neck - no JVD mouth - MMM heart - RRR, s1 s2, no murmur lungs - scant rales L base abd - soft NT ND BS+ ext - no edema, pulses 2+ b/l neuro - CN 3-12 intact except for nystagmus as noted above; motor strength 5/5 x 4 exts; finger/nose/finger maneuver - no true ataxia either hand, but mild intention tremor L hand Results & Data Results & Data Vital Signs (Past 12 Hours) Vital Signs Temp Pulse Pulse Resp BP Pulse Ox O2 Del Method 12/02/22 19:03 37.1 C 81 18 126/72 94 Room Air 12/02/22 11:44 81 12/02/22 08:00 Room Air 12/02/22 07:59 36.6 C 80 18 131/77 96 Room Air Laboratory Results Laboratory Results - last 24 hr 12/01/22 12/01/22 12/01/22 20:12 20:12 20:12 WBC 6.57 RBC 4.16 L Hgb 12.5 Hct 37.2 MCV 89.4 MCH 30.0 MCHC 33.6 RDW Std Deviation 42.7 RDW Coeff of Silke 13.1 Plt Count 178 MPV 10.3 Immature Gran % (Auto) 0.3 Neut % (Auto) 85.1 Lymph % (Auto) 8.2 [place] % (Auto) 5.6 Eos % (Auto) 0.3 Baso % (Auto) 0.5 Neut # (Auto) 5.59 Lymph # (Auto) 0.54 L [place] # (Auto) 0.37 Eos # (Auto) 0.02 Baso # (Auto) 0.03 Immature Gran # (Auto) 0.02 Platelet Estimate Decreased L Sodium 134 L Potassium 3.8 Chloride 102 Carbon Dioxide 24 Anion Gap 8 BUN 12 Creatinine 0.60 Est Cr Clr Drug Dosing 68.8 Est GFR ( Amer) 99.1 Est GFR (Non-Af Amer) 85.5 BUN/Creatinine Ratio 20.0 Glucose 164 H Lactate Calcium 9.0 Phosphorus Magnesium 1.9 Total Bilirubin 0.3 AST 22 ALT 13 Alkaline Phosphatase 90 Troponin I High Sens 9.2 Total Protein 7.3 Albumin 4.3 Globulin 3.0 Albumin/Globulin Ratio 1.4 Procalcitonin TSH 4.370 Urine Color Urine Appearance Urine pH Ur Specific [place] Urine Protein Urine Glucose (UA) Urine Ketones Urine Blood Urine Nitrite Urine Bilirubin Urine Urobilinogen Ur Leukocyte Esterase SARS-CoV-2 (PCR) Influenza Type A (PCR) Influenza Type B (PCR) RSV (RT-PCR) 12/01/22 12/01/22 12/01/22 20:12 20:12 20:12 WBC RBC Hgb Hct MCV MCH MCHC RDW Std Deviation RDW Coeff of Silke Plt Count MPV Immature Gran % (Auto) Neut % (Auto) Lymph % (Auto) [place] % (Auto) Eos % (Auto) Baso % (Auto) Neut # (Auto) Lymph # (Auto) [place] # (Auto) Eos # (Auto) Baso # (Auto) Immature Gran # (Auto) Platelet Estimate Sodium Potassium Chloride Carbon Dioxide Anion Gap BUN Creatinine Est Cr Clr Drug Dosing Est GFR ( Amer) Est GFR (Non-Af Amer) BUN/Creatinine Ratio Glucose Lactate 1.5 Calcium Phosphorus Magnesium Total Bilirubin AST ALT Alkaline Phosphatase Troponin I High Sens Total Protein Albumin Globulin Albumin/Globulin Ratio Procalcitonin < 0.05 TSH Urine Color Urine Appearance Urine pH Ur Specific [place] Urine Protein Urine Glucose (UA) Urine Ketones Urine Blood Urine Nitrite Urine Bilirubin Urine Urobilinogen Ur Leukocyte Esterase SARS-CoV-2 (PCR) POSITIVE A* Influenza Type A (PCR) Negative Influenza Type B (PCR) Negative RSV (RT-PCR) Negative 12/02/22 12/02/22 12/02/22 04:30 07:36 07:36 WBC 5.24 RBC 4.32 Hgb 13.0 Hct 37.8 MCV 87.5 MCH 30.1 MCHC 34.4 RDW Std Deviation 41.5 RDW Coeff of Silke 13.0 Plt Count 214 MPV 9.5 Immature Gran % (Auto) 0.4 Neut % (Auto) 65.4 Lymph % (Auto) 21.0 [place] % (Auto) 13.0 Eos % (Auto) 0.0 Baso % (Auto) 0.2 Neut # (Auto) 3.43 Lymph # (Auto) 1.10 L [place] # (Auto) 0.68 H Eos # (Auto) 0.00 Baso # (Auto) 0.01 Immature Gran # (Auto) 0.02 Platelet Estimate Sodium 140 Potassium 3.7 Chloride 108 H Carbon Dioxide 25 Anion Gap 7 BUN 8 Creatinine 0.55 L Est Cr Clr Drug Dosing 78.0 Est GFR ( Amer) 102.0 Est GFR (Non-Af Amer) 88.0 BUN/Creatinine Ratio 14.5 Glucose 106 H Lactate Calcium 8.7 Phosphorus 2.7 Magnesium Total Bilirubin AST ALT Alkaline Phosphatase Troponin I High Sens Total Protein Albumin 3.8 Globulin Albumin/Globulin Ratio Procalcitonin TSH Urine Color Yellow Urine Appearance Clear Urine pH 7.0 Ur Specific [place] 1.007 Urine Protein Negative Urine Glucose (UA) Trace H Urine Ketones Negative Urine Blood Negative Urine Nitrite Negative Urine Bilirubin Negative Urine Urobilinogen Negative Ur Leukocyte Esterase Negative SARS-CoV-2 (PCR) Influenza Type A (PCR) Influenza Type B (PCR) RSV (RT-PCR) PG Care Time/CCT Total # of Minutes Spent Total Time Spent with Patient: Total time spent is greater than 50% in coordination of care (as documented) at patient's floor/unit and/or counseling patient: Coding Level of Care Code None Diagnoses COVID-19 U07.1 Acute severe vertigo R42 Nausea & vomiting R11.2 Acute dehydration E86.0 GERD (gastroesophageal reflux disease) K21.9 S/P cataract extraction and insertion of intraocular lens Z98.49; Z96.1
--- NOTE | 2022-12-03 00:34 | Magnetic Resonance Report ---
Exam(s): MRI HEAD Without Contrast EXAM: MR Head Without Intravenous Contrast CLINICAL HISTORY: Reason for exam: COVID-19, severe vertigo, eval posterior CVA. TECHNIQUE: Magnetic resonance images of the head/brain without intravenous contrast in multiple planes. COMPARISON: CT dated 12/01/2022. FINDINGS: Brain: Mild to moderate generalized brain atrophy. Mild periventricular and deep white matter changes most compatible with microangiopathic coronary disease. No hemorrhage. No acute infarct. Ventricles: Unremarkable. No ventriculomegaly. Bones/joints: Unremarkable. Sinuses: Small amount of fluid with mucosal thickening involving the bilateral maxillary, ethmoids and sphenoid sinus consistent with sinusitis. Mastoid air cells: Unremarkable as visualized. No mastoid effusion. Orbits: Unremarkable as visualized. IMPRESSION: Chronic changes as described. No acute stroke or intracranial hemorrhage. No space-occupying lesion. Electronically signed by: Saumya Frey MD 12/03/22 00:32 AM
[2022-12-03 08:12] LABS: BUN Creatinine Ratio 22.6 (10-20); Calcium 8.8 mg/dl (8.6-10.3); Est GFR (African American) 103.2 ml/min; Potassium 3.6 mmol/L (3.5-5.1)
[2022-12-03] MEDS: MECLIZINE 12.5 MG TAB PO SCH ×2 (08:53→16:01)
[2022-12-03] MEDS: ASCORBIC ACID 500 MG TAB PO SCH (08:53)
[2022-12-03] MEDS: GATIFLOXACIN 0.5% OP SOLN 2.5 ML BTL OPR SCH ×3 (08:53→20:39)
[2022-12-03] MEDS: KETOROLAC 0.5% OP SOLN 5 ML BTL OPR SCH ×4 (08:57→20:40)
[2022-12-03] MEDS: prednisoLONE acetate 1% OP SUSP 5 ML BTL OPR SCH ×4 (09:04→20:40)
[2022-12-03] MEDS: REMDESIVIR 100 MG in SODIUM CHLORIDE 0.9% 230 ML IV SCH (12:10)
[2022-12-03] MEDS ORDERED: LORazepam 1 MG TAB PO PRN (16:11)
[2022-12-03] MEDS: DICLOFENAC SOD 1% GEL 100 GM TUBE EXT SCH ×2 (18:47→20:40)
--- NOTE | 2022-12-03 20:18 | Hospitalist Progress Note ---
Date of Service December 03, 2022 Assessment & Plan (1) COVID-19: Plan: tested + on , 11/29 no symptoms until 2 days ago --> cough, congestion, and acute vertigo - see below thus far no clinical evidence of pneumonia, but o2 sats at times are <94% LLL atelectasis on cxr only watch closely for development of pneumonia but no evidence to date of such cont to defer steroids cont Remdesivir (in vincent of paxlovid) -- day #2 of such ast/alt wnl; recheck in am creatinine also stable (2) Acute severe vertigo: Plan: viral vestibular neuronitis -- 2nd to COVID infection MRI brain NEGATIVE for acute CVA has improved with meclizine 12.5mg TID scheduled but still quite symptomatic limiting her mobility; thus, increase meclizine to 25mg TID cont PT, OT symptoms should improve in the next several days (3) Nausea & vomiting: Plan: resolved 2nd to #2 anti-emetics prn meclizine TID (4) Acute dehydration: Plan: resolved (5) GERD (gastroesophageal reflux disease): Plan: pepcid prn (6) S/P cataract extraction and insertion of intraocular lens: Plan: right eye 11/27/22 Dr Ren cont prednisolone eye drops cont gaifloxacin eye drops cont ketorolac eye drops all ordered for patient (7) Back pain: Plan: sounds like myalgias - probably due to her COVID infection K-pad, if available voltaren gel qid to paraspinal muscles Plan DVT proph - if patient stays beyond the next 24 hours will ask ophtho if ok to use chemical DVT proph at this point Admission and Anticipated Discharge Date Admission Date: December 03, 2022 Subjective patient resting comfortably in bed during the visit states vertigo/dizziness is improved but not resolved cough improved no dyspnea appetite is still poor no nausea/vomiting/diarrhea no abd pain c/o back pain in the paraspinal muscle regions Review of Systems Review of Systems: gen - no fevers or chills cv - no cp, no orthopnea HENT - no sore throat or runny nose pulm - no cough, no KOENIG Physical Exam Physical Exam: gen - looks better today; NAD eyes - clear sclera b/l; +nystagmus fast beat to the right (horizontal) - about the same as previous; no vertical nystagmus neck - no JVD mouth - MMM heart - RRR, s1 s2, no murmur lungs - CTA b/l, no rales or wheeze abd - soft NT ND BS+ ext - no edema, pulses 2+ b/l Results & Data Results & Data Vital Signs (Past 12 Hours) Vital Signs Temp Pulse Resp BP Pulse Ox O2 Del Method 12/03/22 19:52 36.9 C 83 17 111/67 92 Room Air 12/03/22 15:38 36.6 C 75 20 137/73 94 Room Air 12/03/22 15:05 36.6 C 75 20 137/73 94 Room Air 12/03/22 12:05 36.7 C 76 20 134/75 95 Room Air Laboratory Results Laboratory Results - last 24 hr 12/03/22 07:32 Sodium 138 Potassium 3.6 Chloride 107 Carbon Dioxide 25 Anion Gap 6 BUN 12 Creatinine 0.53 L Est Cr Clr Drug Dosing 81.0 Est GFR ( Amer) 103.2 Est GFR (Non-Af Amer) 89.0 BUN/Creatinine Ratio 22.6 H Glucose 89 Calcium 8.8 AST 21 ALT 13 Diagnostic Findings Brain MRI 12/02/22 17:21 Exam(s): MRI HEAD Without Contrast EXAM: MR Head Without Intravenous Contrast CLINICAL HISTORY: Reason for exam: COVID-19, severe vertigo, eval posterior CVA. TECHNIQUE: Magnetic resonance images of the head/brain without intravenous contrast in multiple planes. COMPARISON: CT dated 12/01/2022. FINDINGS: Brain: Mild to moderate generalized brain atrophy. Mild periventricular and deep white matter changes most compatible with microangiopathic coronary disease. No hemorrhage. No acute infarct. Ventricles: Unremarkable. No ventriculomegaly. Bones/joints: Unremarkable. Sinuses: Small amount of fluid with mucosal thickening involving the bilateral maxillary, ethmoids and sphenoid sinus consistent with sinusitis. Mastoid air cells: Unremarkable as visualized. No mastoid effusion. Orbits: Unremarkable as visualized. IMPRESSION: Chronic changes as described. No acute stroke or intracranial hemorrhage. No space-occupying lesion. Electronically signed by: Saumya Frey MD 12/03/22 00:32 AM PG Care Time/CCT Total # of Minutes Spent Total Time Spent with Patient: Total time spent is greater than 50% in coordination of care (as documented) at patient's floor/unit and/or counseling patient: Coding Level of Care Code 17088 SUB INP/OBS CARE 235MIN Diagnoses COVID-19 U07.1 Acute severe vertigo R42 Nausea & vomiting R11.2 Acute dehydration E86.0 GERD (gastroesophageal reflux disease) K21.9 S/P cataract extraction and insertion of intraocular lens Z98.49; Z96.1 Back pain M54.9
[2022-12-03] MEDS: MECLIZINE HCL 25 MG TAB PO SCH (20:39)
[2022-12-03] MEDS: LORazepam 1 MG TAB PO SCH (22:00)
--- NOTE | 2022-12-04 07:41 | Electrocardiogram Report ---
Test Reason : Blood Pressure : / mmHG Vent. Rate : 083 BPM Atrial Rate : 083 BPM P-R Int : 160 ms QRS Dur : 088 ms QT Int : 366 ms P-R-T Axes : 057 048 031 degrees QTc Int : 430 ms Normal sinus rhythm Normal ECG When compared with ECG of 13-MAR-2004 12:49, No significant change was found Confirmed by Chris Garrido ([id number]) on 12/04/2022 7:40:42 AM Referred By: REFERRED SELF Confirmed By:Chris Garrido
[2022-12-04 08:22] LABS: Basophils # (auto) 0.02 K/uL (0-0.2); Basophils % (auto) 0.4 %; Eosinophils # (auto) 0.11 K/uL (0-0.50); Eosinophils % (auto) 2.2 %; Hematocrit (blood only) 41.6 % (37.0-47.0); Hemoglobin 14.5 g/dl (12.0-16.0); Immature Granulocytes # (auto) 0.01 K/uL (0.01-0.20); Immature Granulocytes % (auto) 0.2 %; Lymphocytes # (auto) 1.77 K/uL (1.2-3.4); Lymphocytes % (auto) 34.7 %; Mean Corpuscular Hemoglobin 29.8 pg (25.0-34.0); Mean Corpuscular Hgb Conc 34.9 g/dL (32.0-36.0); Mean Corpuscular Volume 85.4 fL (80.0-100.0); Mean Platelet Volume 9.7 fL (9.4-12.4); Monocytes # (auto) 0.63 K/uL (0.11-0.59); Monocytes % (auto) 12.4 %; Neutrophils # (auto) 2.56 K/uL (1.40-6.50); Neutrophils % (auto) 50.1 %; Platelet Count 238 K/uL (130-400); RDW Standard Deviation 40.6 fL (36.4-46.3); Red Blood Count 4.87 M/uL (4.20-5.40)
[2022-12-04 08:30] LABS: BUN Creatinine Ratio 27.1 (10-20); Calcium 9.1 mg/dl (8.6-10.3); Creatinine Clr Calc Pharmacy 72.7 ml/min; Est GFR (African American) 99.6 ml/min; Potassium 3.8 mmol/L (3.5-5.1)
[2022-12-04] MEDS: MECLIZINE HCL 25 MG TAB PO SCH ×3 (08:42→20:51)
[2022-12-04] MEDS: ASCORBIC ACID 500 MG TAB PO SCH (08:42)
[2022-12-04] MEDS: GATIFLOXACIN 0.5% OP SOLN 2.5 ML BTL OPR SCH ×3 (08:43→20:51)
[2022-12-04] MEDS: prednisoLONE acetate 1% OP SUSP 5 ML BTL OPR SCH ×4 (08:43→20:51)
[2022-12-04] MEDS: KETOROLAC 0.5% OP SOLN 5 ML BTL OPR SCH ×4 (08:43→20:51)
[2022-12-04] MEDS: DICLOFENAC SOD 1% GEL 100 GM TUBE EXT SCH ×4 (08:44→20:52)
[2022-12-04] MEDS: REMDESIVIR 100 MG in SODIUM CHLORIDE 0.9% 230 ML IV SCH (12:08)
--- NOTE | 2022-12-04 13:12 | Hospitalist Progress Note ---
Date of Service December 04, 2022 Assessment & Plan (1) COVID-19: Plan: tested + on , 11/29 developed cough, congestion, and acute vertigo These symptoms are now better following Remdesivir Currently saturating well on room air Chest x ray did not show any inflitrates (2) Acute severe vertigo: Plan: likely 2nd to COVID infection, now much improved MRI brain did not show any acute pathology Continue meclizine 12.5mg TID scheduled PT, OT (3) Nausea & vomiting: Plan: resolved 2nd to #2 anti-emetics prn meclizine TID (4) Acute dehydration: Plan: improved stop IVF (5) GERD (gastroesophageal reflux disease): Plan: pepcid prn (6) S/P cataract extraction and insertion of intraocular lens: Plan: right eye 11/27/22 Dr Ren cont prednisolone eye drops cont gaifloxacin eye drops cont ketorolac eye drops all ordered for patient Plan continuie PT, andrés d/c tomorrow Admission and Anticipated Discharge Date Admission Date: December 03, 2022 Subjective patient seen and examined, said her vertigo is much improved, participating in PT, wants to have her eye drops as scheduled Review of Systems Review of Systems: All systems reviewed are negative, apart from the ones contained in the history. Physical Exam Physical Exam: The patient is awake, alert and oriented 3, well developed and well nourished, normocephalic and atraumatic, lying in bed and in no acute distress. HEENT--PERRL, EOMI, mucous membranes and oropharynx mildly dry Neck--supple. No JVD. No bruits. Thyroid normal, trachea midline, no adenopathy. Heart--normal S1 and S2. No murmurs, rubs or gallops. Lungs--clear bilaterally, no respiratory distress, no accessory muscle use. Abdomen--normal bowel sounds and soft. Mild epigastric and left sided abdominal pain Extremities--no cyanosis or clubbing. No edema. Dermatologic--normal skin turgor, normal color, no abnormal lymph nodes, no rash. Neurologic--cranial nerves II through XII grossly intact. Rheumatologic--normal range of motion. Psychiatric--normal affect. Results & Data Results & Data Vital Signs (Past 12 Hours) Vital Signs Temp Pulse Resp BP Pulse Ox O2 Del Method 12/04/22 11:10 97.3 F L 75 19 110/71 92 Room Air 12/04/22 06:40 97.3 F L 74 18 112/73 94 Room Air 12/04/22 03:48 97.5 F L 64 16 109/71 94 Room Air PG Care Time/CCT Total # of Minutes Spent Total Time Spent with Patient: Total time spent is greater than 50% in coordination of care (as documented) at patient's floor/unit and/or counseling patient: Coding Level of Care Code 95256 SUB INP/OBS CARE 2/35MIN Diagnoses COVID-19 U07.1 Acute severe vertigo R42 Nausea & vomiting R11.2 Acute dehydration E86.0 GERD (gastroesophageal reflux disease) K21.9 S/P cataract extraction and insertion of intraocular lens Z98.49; Z96.1 Time Spent (min) 35
[2022-12-04] MEDS: LORazepam 1 MG TAB PO SCH (20:59)
[2022-12-05] MEDS: prednisoLONE acetate 1% OP SUSP 5 ML BTL OPR SCH ×4 (08:25→20:32)
[2022-12-05] MEDS: MECLIZINE HCL 25 MG TAB PO SCH (08:26)
[2022-12-05] MEDS: KETOROLAC 0.5% OP SOLN 5 ML BTL OPR SCH ×4 (08:26→20:29)
[2022-12-05] MEDS: GATIFLOXACIN 0.5% OP SOLN 2.5 ML BTL OPR SCH ×3 (08:27→20:32)
[2022-12-05] MEDS: DICLOFENAC SOD 1% GEL 100 GM TUBE EXT SCH ×4 (08:27→20:32)
[2022-12-05] MEDS: ASCORBIC ACID 500 MG TAB PO SCH (08:27)
[2022-12-05] MEDS: HEPARIN SOD 5,000 UNIT/0.5 ML VIAL SQ SCH ×2 (08:27→20:35)
[2022-12-05] MEDS: REMDESIVIR 100 MG in SODIUM CHLORIDE 0.9% 230 ML IV SCH (12:16)
[2022-12-05] MEDS ORDERED: MECLIZINE HCL 25 MG TAB PO PRN (12:28)
--- NOTE | 2022-12-05 12:54 | Hospitalist Progress Note ---
Date of Service December 05, 2022 Assessment & Plan (1) COVID-19: Plan: tested + on , 11/29 developed cough, congestion, and acute vertigo These symptoms are now better following Remdesivir Currently saturating well on room air Chest x ray did not show any inflitrates (2) Acute severe vertigo: Plan: likely 2nd to COVID infection, now much improved MRI brain did not show any acute pathology Continue meclizine 12.5mg TID PRN PT, OT (3) Nausea & vomiting: Plan: resolved 2nd to #2 anti-emetics prn meclizine TID (4) Acute dehydration: Plan: improved stop IVF (5) GERD (gastroesophageal reflux disease): Plan: pepcid prn (6) S/P cataract extraction and insertion of intraocular lens: Plan: right eye 11/27/22 Dr Ren cont prednisolone eye drops cont gaifloxacin eye drops cont ketorolac eye drops all ordered for patient Plan andrés wild PT d/c tomorrow Admission and Anticipated Discharge Date Admission Date: December 03, 2022 Subjective patient seen and examined, I walked her in the room, she did well, but she said she is still weak Review of Systems Review of Systems: All systems reviewed are negative, apart from the ones contained in the history. Physical Exam Physical Exam: The patient is awake, alert and oriented 3, well developed and well nourished, normocephalic and atraumatic, lying in bed and in no acute distress. HEENT--PERRL, EOMI, mucous membranes and oropharynx mildly dry Neck--supple. No JVD. No bruits. Thyroid normal, trachea midline, no adenopathy. Heart--normal S1 and S2. No murmurs, rubs or gallops. Lungs--clear bilaterally, no respiratory distress, no accessory muscle use. Abdomen--normal bowel sounds and soft. Mild epigastric and left sided abdominal pain Extremities--no cyanosis or clubbing. No edema. Dermatologic--normal skin turgor, normal color, no abnormal lymph nodes, no rash. Neurologic--cranial nerves II through XII grossly intact. Rheumatologic--normal range of motion. Psychiatric--normal affect. Results & Data Results & Data Vital Signs (Past 12 Hours) Vital Signs Temp Pulse Pulse Resp BP Pulse Ox O2 Del Method 12/05/22 10:45 97.9 F 81 19 125/75 96 Room Air 12/05/22 07:54 98.6 F 71 19 117/73 94 Room Air 12/05/22 05:29 96 H 12/05/22 02:59 97.7 F 60 18 131/84 95 Room Air PG Care Time/CCT Total # of Minutes Spent Total Time Spent with Patient: Total time spent is greater than 50% in coordination of care (as documented) at patient's floor/unit and/or counseling patient: Coding Level of Care Code 94812 SUB INP/OBS CARE 2/35MIN Diagnoses COVID-19 U07.1 Acute severe vertigo R42 Nausea & vomiting R11.2 Acute dehydration E86.0 GERD (gastroesophageal reflux disease) K21.9 S/P cataract extraction and insertion of intraocular lens Z98.49; Z96.1 Time Spent (min) 35
[2022-12-05] MEDS: LORazepam 1 MG TAB PO SCH (20:38)
[2022-12-06] MEDS: prednisoLONE acetate 1% OP SUSP 5 ML BTL OPR SCH ×2 (08:18→11:53)
[2022-12-06] MEDS: GATIFLOXACIN 0.5% OP SOLN 2.5 ML BTL OPR SCH (08:18)
[2022-12-06] MEDS: KETOROLAC 0.5% OP SOLN 5 ML BTL OPR SCH ×2 (08:18→11:52)
[2022-12-06] MEDS: ASCORBIC ACID 500 MG TAB PO SCH (08:19)
[2022-12-06] MEDS: DICLOFENAC SOD 1% GEL 100 GM TUBE EXT SCH ×2 (08:19→13:00)
[2022-12-06] MEDS: HEPARIN SOD 5,000 UNIT/0.5 ML VIAL SQ SCH (08:20)
[2022-12-06] MEDS: REMDESIVIR 100 MG in SODIUM CHLORIDE 0.9% 230 ML IV SCH (11:53)
--- NOTE | 2022-12-06 13:09 | Discharge Summary ---
Date of Service December 06, 2022 Admission HPI Per Admitting Provider The patient is a 82-year-old female who underwent first cataract extraction about 1 month ago, then follow-up I was done on Saturday, 4 days ago. She continues to take eyedrops post eye surgery. 3 days ago, her was diagnosed with COVID 19, and then 2 days ago she was diagnosed with COVID-19. Yesterday she developed the above symptoms of intractable vertigo, vomiting, dizziness, and dry mouth associated with decreased oral intake. She had been prescribed Paxlovid, of which she took 1 dose so far, and this was taken after the noted symptoms began. She and her report that she typically is a healthy person, and does not take any medications routinely prior to using eyedrops for eye surgery. Principal Diagnosis covid 19 Discharge Exam The patient is awake, alert and oriented 3, well developed and well nourished, normocephalic and atraumatic, lying in bed and in no acute distress. HEENT--PERRL, EOMI, mucous membranes and oropharynx mildly dry Neck--supple. No JVD. No bruits. Thyroid normal, trachea midline, no adenopathy. Heart--normal S1 and S2. No murmurs, rubs or gallops. Lungs--clear bilaterally, no respiratory distress, no accessory muscle use. Abdomen--normal bowel sounds and soft. Mild epigastric and left sided abdominal pain Extremities--no cyanosis or clubbing. No edema. Dermatologic--normal skin turgor, normal color, no abnormal lymph nodes, no rash. Neurologic--cranial nerves II through XII grossly intact. Rheumatologic--normal range of motion. Psychiatric--normal affect. Discharge Data Allergies Allergy/AdvReac Type Severity Reaction Status Date / Time cortisone AdvReac Intermediate Rash Verified 11/27/22 06:31 erythromycin base AdvReac Intermediate Rash Verified 11/27/22 06:31 Penicillins AdvReac Intermediate Rash Verified 11/27/22 06:31 prednisone AdvReac Intermediate Rash Verified 11/27/22 06:31 Tetracyclines AdvReac Unknown Unknown Verified 11/27/22 06:31 Consultations 12/02/22 00:48 ED Decision to Admit Stat Ordered Studies 12/01/22 21:43 CT head/brain wo con Stat 12/02/22 17:21 MR brain wo con Routine Hospital Course (1) COVID-19: tested + on , 11/29 developed cough, congestion, and acute vertigo These symptoms are now better following Remdesivir Currently saturating well on room air Chest x ray did not show any inflitrates (2) Acute severe vertigo: likely 2nd to COVID infection, now much improved MRI brain did not show any acute pathology Continue meclizine 12.5mg TID PRN PT, OT (3) Nausea & vomiting: resolved 2nd to #2 anti-emetics prn meclizine TID prn (4) Acute dehydration: improved stop IVF (5) GERD (gastroesophageal reflux disease): pepcid prn (6) S/P cataract extraction and insertion of intraocular lens: right eye 11/27/22 Dr Ren cont prednisolone eye drops cont gaifloxacin eye drops cont ketorolac eye drops all ordered for patient Plan d/c home Total Time Total Time Spent Total Time Spent (In Minutes): 35 Discharge Plan Discharge Items Patient Disposition: Home - Self-Care Reason For Visit: VERTIGO, WEAKNESS, COVID-19 INFECTION Discharge Diagnosis: covid 19 Activity: Resume your previous activity Non-emergency contact: Primary Care Provider Call non-emergency contact if: you have any medication questions Follow-up/Referrals: Pro,Johnathon Mcmanus MD [Primary Care Provider] - 12/17/22 11:00 am (Follow up scheduled with Rosario Davies on 12/17/22 @ 11 am) Diet: Regular Addtl Attending Provider Instructions: please isolate for 4 more days. Follow up with your regular PCP Pending Studies at Discharge: No Stand-Alone Forms: My [facility] [employer], Smoking Cessation Medications and DC Order Prescriptions: Continued lorazepam 0.5 mg tablet 0.5 mg PO DAILY PRN (Reason: anxiety) Qty: 30 0RF famotidine 20 mg tablet 20 mg PO DAILY PRN (Reason: Heartburn) calcium carbonate [Tums] 200 mg calcium (500 mg) tablet,chewable 200 mg PO BID PRN (Reason: Cramps) ascorbate calcium (vitamin C) 500 mg tablet 500 mg PO DAILY ketorolac 0.5 % drops 1 drp ophthalmic (eye) Q4H MDD 4 Rx Instructions: Starts at 8AM, 1 drop both eyes. prednisolone acetate 1 % drops,suspension 1 drp ophthalmic (eye) Q4H MDD 3 Rx Instructions: 1 Drop daily L eye, 3 drops daily R eye 1 drop every 4 hours. gatifloxacin 0.5 % drops 1 drp ophthalmic (eye) Q4H MDD 4 Rx Instructions: Starts at 8AM, R eye only Discontinued Paxlovid 300 mg (150 mg x 2)-100 mg tablets,dose pack See Rx Instructions PO .COMPLEX Qty: 30 0RF Rx Instructions: take TWO 150 mg tablets of nirmatrelvir with ONE 100 mg tablet of ritonavir twice daily for 5 days PO Discharge Orders: Discharge Order (Routine); Ordered 12/06/22 Ordered By: Dany Lynch Admission Data Admit Date/Time: 12/03/22 16:18 Attending Provider: Dany Lynch Admit Provider: Michele Madrid Primary Care Provider: Johnathon Butler Other Providers: Michele Madrid Other Interventions: Discharge Summary Assessment (RN) Last Done: 12/06/22 11:51 Coding Level of Care Code 45941 INP/OBS DISCH >30 MIN Diagnoses COVID-19 U07.1 Acute severe vertigo R42 Nausea & vomiting R11.2 Acute dehydration E86.0 GERD (gastroesophageal reflux disease) K21.9 S/P cataract extraction and insertion of intraocular lens Z98.49; Z96.1 Time Spent (min) 35
== END 2022-12-06 13:03 | disposition home or self-care (01) | DRG 178 ==
LOC: ED 19:39 → 2S 19:39 → SUATTDRO 12-02 01:37 → 2S 12-02 05:45 → SUATTDRO 12-03 16:18